=== PATIENT | female | born 1940 | race Caucasian/White ===

== ENCOUNTER 2016-11-24 01:58 | Emergency (ER) | payer OTHER, MEDICAID ==
[~2016-11-24] VITALS: Ht 162.6 cm; Wt 63.5 kg
[2016-11-24 02:00] VITALS: BP_SYST 161
[2016-11-24 02:31] LABS: BILIRUBIN,URINE NEGATIVE (NEGATIVE); BLOOD, URINE 3+ (NEGATIVE); CLARITY/URINE HAZY (CLEAR); GLUCOSE,URINE NEGATIVE (NEGATIVE); KETONES,URINE NEGATIVE (NEGATIVE); LEUKOCYTE ESTERASE ,URINE TRACE (NEGATIVE); NITRITE, URINE NEGATIVE (NEGATIVE); PROTEIN URINE 3+ (NEGATIVE); UROBILINOGEN,URINE 0.2 (0.2-1.0)
[2016-11-24 02:38] LABS: COLOR,URINE YELLOW (YELLOW)
[2016-11-24 02:39] LABS: RBC,URINE >100 /HPF (0-3)
[2016-11-24 02:40] LABS: BACTERIA,URINE FEW /HPF (None Seen)
[2016-11-24] MEDS ORDERED: SULFAMETHOXAZOLE/TRIMETHOPR DS 1 TABLET PO ONE (02:45)
[2016-11-24] MEDS ORDERED: PHENAZOPYRIDINE HCL 100 MG TABLET PO ONE (02:45)
[2016-11-24] MEDS ORDERED: MAGNESIUM CITRATE 300 ML ORAL SOLUTION PO ONE (03:00)
[2016-11-24 03:06] VITALS: BP_SYST 161
== END 2016-11-24 03:06 | disposition home or self-care (01) ==
LOC: SED 01:58
DX: N39.0 Urinary tract infection, site not specified (principal); K59.00 Constipation, unspecified; E11.9 Type 2 diabetes mellitus without complications; I10 Essential (primary) hypertension
CPT/HCPCS: 74000-TC; 81000-TC; 99285

== ENCOUNTER 2016-12-09 20:13 | Emergency (ER) | payer OTHER, MEDICAID ==
[~2016-12-09] VITALS: Ht 162.6 cm; Wt 68.0 kg
[2016-12-09 20:22] VITALS: BP_SYST 152
--- NOTE | 2016-12-09 21:23 | NUR ---
Patient to ER bed 7 to gown for evaluation. Side rails up. Report given to LUZ REAL.
[2016-12-09 21:31] LABS: BILIRUBIN,URINE NEGATIVE (NEGATIVE); BLOOD, URINE 3+ (NEGATIVE); CLARITY/URINE CLOUDY (CLEAR); COLOR,URINE BROWN (YELLOW); GLUCOSE,URINE NEGATIVE (NEGATIVE); KETONES,URINE NEGATIVE (NEGATIVE); LEUKOCYTE ESTERASE ,URINE 2+ (NEGATIVE); NITRITE, URINE NEGATIVE (NEGATIVE); PROTEIN URINE 2+ (NEGATIVE)
--- NOTE | 2016-12-09 21:40 | NUR ---
Pt AOx4, ambulatory, presents to ER with complaint of pain and burning upon voiding. Pt was on medication Amoxicillin for UTI for 10 days but only completed about 5-6 days because the symptoms had subsided. Pain is now only felt upon voiding. Pt states she was drinking plenty of cranberry juice but by then it was too late, she started feeling discomfort again. No acute distress noted. Will continue to monitor.
[2016-12-09 21:49] LABS: BACTERIA,URINE MANY /HPF (None Seen); MUCUS,URINE None Seen /LPF (None Seen); RBC,URINE >100 /HPF (0-3); WBC,URINE >100 /HPF (0-3)
--- NOTE | 2016-12-09 21:50 | NUR ---
TAFE REGISTRAR at bedside examining patient.
[2016-12-09] MEDS ORDERED: KETOROLAC TROMETHAMINE 60 MG/2 ML VIAL IM ONE (22:00)
[2016-12-09] MEDS ORDERED: cefTRIAXone 1 GM VIAL IM ONE (22:00)
[2016-12-09] MEDS ORDERED: ONDANSETRON 4 MG ODT TAB PO ONE (22:00)
[2016-12-09] MEDS ORDERED: cefTRIAXone 1 GM IVPB PREMIX 50 ML IV ONE (22:00)
[2016-12-09] MEDS ORDERED: LIDOCAINE 2%, 20 ML MDV INJ ONE (22:00)
--- NOTE | 2016-12-09 22:25 | NUR ---
Patient reports pain 0/10, 10 minutes after administration of Toradol. No adverse reactions noted. Will continue to monitor.
[2016-12-09 22:35] VITALS: BP_SYST 117
--- NOTE | 2016-12-09 22:35 | NUR ---
Patient given written and verbal discharge instructions and verbalizes understanding. ER MD discussed with patient the results and treatment provided. Patient in stable condition. ID arm band removed. Rx of Macrobid, Zofran, and Pyridium given. Patient educated on pain management and to follow up with PMD. Pain Scale 0/10. Opportunity for questions provided and answered.
== END 2016-12-09 22:35 | disposition home or self-care (01) ==
LOC: SED 20:13
DX: N39.0 Urinary tract infection, site not specified (principal); I10 Essential (primary) hypertension; E11.9 Type 2 diabetes mellitus without complications; F17.200 Nicotine dependence, unspecified, uncomplicated; Z71.6 Tobacco abuse counseling
CPT/HCPCS: 81000; 87086; 96372; 99284; J0696; J1885; J2001; Q0162; 87186-TC

== ENCOUNTER 2017-01-26 23:59 | Emergency (ER) | payer OTHER, MEDICAID ==
[~2017-01-26] VITALS: Ht 162.6 cm; Wt 62.6 kg
--- NOTE | 2017-01-27 | NUR ---
Patient to ER bed 6 to gown for evaluation. Side rails up. Report given to Mayito ESCOBAR.
[2017-01-27 00:06] VITALS: BP_SYST 139
--- NOTE | 2017-01-27 00:21 | NUR ---
Patient to ED for evaluation of "Nervous Stomach" and unable to sleep x 3 days. Patient placed on cardiac cath rn, bp and pulse oximeter. Patient reports that she has recently been staying at her sons house, c/o epigastric pain, denies CP/SOB at present. Awaiting evaluation by ER MD-will continue to observe and assess. Comfort measures offered, but declined.
--- NOTE | 2017-01-27 00:24 | NUR ---
Dr Waters at bedside to evaluate patient.
[2017-01-27] MEDS ORDERED: NACL 0.9% 1,000 ML IV ONE (00:28)
[2017-01-27] MEDS ORDERED: BELLADONNA ALKALOIDS/PHENOBARB 5 ML UDC PO ONE (00:30)
[2017-01-27] MEDS ORDERED: PANTOPRAZOLE SODIUM 40 MG/VIAL (PROTONIX) IVP ONE (00:30)
[2017-01-27] MEDS ORDERED: MAG-AL HYDROX/SIMETH 30 ML UDC PO ONE (00:30)
[2017-01-27] MEDS ORDERED: LIDOCAINE VISCOUS 2%, 15 ML UDC MM ONE (00:30)
[2017-01-27] MEDS ORDERED: LORazepam 2 MG/ML VIAL (FOR ER USE) IVP ONE (00:45)
--- NOTE | 2017-01-27 00:46 | NUR ---
Lab at bedside for blood draw
--- NOTE | 2017-01-27 00:50 | NUR ---
X-ray at bedside for films,
[2017-01-27 00:56] LABS: BASOPHILS # (AUTO) 0.1 K/uL (0.0-0.2); BASOPHILS % (AUTO) 0.9 % (0.0-2.0); EOSINOPHILS # (AUTO) 0.2 K/uL (0.0-0.4); EOSINOPHILS % (AUTO) 2.4 % (0.0-4.0); HEMOGLOBIN 14.7 g/dL (12.0-16.0); LYMPHOCYTES # (AUTO) 3.1 K/uL (1.0-5.5); LYMPHOCYTES % (AUTO) 39.6 % (20.5-51.5); MEAN CORPUSCULAR HEMOGLOBIN 30 pg (27-31); MEAN CORPUSCULAR HGB CONC 33 % (32-36); MEAN CORPUSCULAR VOLUME 89 fL (79.0-98.0); MONOCYTES # (AUTO) 0.6 K/uL (0.0-1.0); MONOCYTES % (AUTO) 7.3 % (1.7-9.3); NEUTROPHILS # (AUTO) 3.8 K/uL (1.8-7.7); NEUTROPHILS % (AUTO) 49.8 % (40.0-70.0); PLATELET COUNT (AUTO) 303 K/uL (130-430); RED BLOOD CELL COUNT(AUTO) 4.98 MIL/uL (4.2-6.2); RED CELL DISTRIBUTION WIDTH 12.2 % (9.0-15.0); WHITE BLOOD COUNT (AUTO) 7.8 K/uL (4.8-10.8)
--- NOTE | 2017-01-27 01:07 | NUR ---
Patient to CT scan for films
[2017-01-27 01:11] LABS: ANION GAP 9 (5-15); CALCIUM 8.8 mg/dL (8.4-11.0); CHLORIDE 101 mmol/L (98-107); CREATININE 0.61 mg/dL (0.55-1.30); GLUCOSE 160 mg/dL (70-99); POTASSIUM 3.5 mmol/L (3.5-5.1); SODIUM SERUM 139 mmol/L (136-145); UREA NITROGEN, BLOOD 15 mg/dL (8-21)
[2017-01-27 01:17] LABS: PROTHROMBIN TIME 10.8 SECS (9.5-12.5)
[2017-01-27 01:20] LABS: ALANINE AMINOTRANSFERASE 19 U/L (12-78); ALBUMIN 3.6 g/dL (3.4-4.8); ASPARTATE AMINOTRANSFERASE 20 U/L (10-37); TOTAL BILIRUBIN 0.7 mg/dL (0.0-1.0); TOTAL PROTEIN, SERUM 6.8 g/dL (6.4-8.3)
--- NOTE | 2017-01-27 01:30 | NUR ---
Patient returned from CT scan in stable condition. IVF infusing without difficulty-no redness or swelling noted at site. Patient remains on front desk monitor which shows sinus rhythm. Female visitor at bedside-update/emotional support given, questions answered.
[2017-01-27 02:36] VITALS: BP_SYST 122
--- NOTE | 2017-01-27 02:39 | NUR ---
Dr Waters at bedside speaking with patient regarding results and plan of care. Plan is for DC home. IVF infusing without difficulty-no redness or swelling noted at site. Vital signs updated
--- NOTE | 2017-01-27 02:55 | NUR ---
Patient sleeping soundly, awakens easily for ACI.
--- NOTE | 2017-01-27 02:56 | NUR ---
Patient given written and verbal discharge instructions and verbalizes understanding. ER MD discussed with patient the results and treatment provided. Patient in stable condition. ID arm band removed. IV catheter removed intact and dressing applied, no active bleeding. Rx of Omeprazole given. Patient educated on pain management and to follow up with PMD. Pain Scale 0. Opportunity for questions provided and answered.
== END 2017-01-27 02:54 | disposition home or self-care (01) ==
LOC: SED 23:59
DX: K29.00 Acute gastritis without bleeding (principal); J45.909 Unspecified asthma, uncomplicated; E11.9 Type 2 diabetes mellitus without complications; I10 Essential (primary) hypertension; F17.200 Nicotine dependence, unspecified, uncomplicated
CPT/HCPCS: 36415; 71010; 74176; 80053; 84484; 85025; 85379; 85610; 85730; 93005; 96361; 96374; 96375; 99285; C9113; J2001; J2060; J7030

== ENCOUNTER 2017-09-12 20:09 | Inpatient (IN) | payer OTHER, MEDICAID ==
[~2017-09-12] VITALS: Ht 162.6 cm; Wt 61.0 kg
[2017-09-12 20:09] VITALS: BP_SYST 132
[2017-09-12] MEDS ORDERED: IPRATROPIUM/ALBUTEROL SULFATE 3 ML AMPUL.NEB INH ONE (20:45)
[2017-09-12] MEDS ORDERED: ALBU8.5H8 INH (21:24)
[2017-09-12] MEDS ORDERED: LIP20 PO (21:24)
[2017-09-12] MEDS ORDERED: ALBU2.5V7 INH (21:24)
[2017-09-12] MEDS ORDERED: AMLO5TAB4 PO (21:24)
[2017-09-12] MEDS ORDERED: GLUXR500 PO (21:24)
[2017-09-12 21:28] LABS: ANION GAP 0 (5-15); CHLORIDE 100 mmol/L (98-107); CREATININE 0.67 mg/dL (0.55-1.30); GLUCOSE 267 mg/dL (70-99); POTASSIUM 4.4 mmol/L (3.5-5.1); SODIUM SERUM 137 mmol/L (136-145); UREA NITROGEN, BLOOD 17 mg/dL (8-21)
[2017-09-12 21:31] LABS: BASOPHILS % (AUTO) 0.2 % (0.0-2.0); EOSINOPHILS % (AUTO) 0.2 % (0.0-4.0); MONOCYTES # (AUTO) 0.2 K/uL (0.0-1.0)
[2017-09-12 21:39] LABS: HEMATOCRIT 41.8 % (36-48); HEMOGLOBIN 15.4 g/dL (12.0-16.0); LYMPHOCYTES # (AUTO) 1.1 K/uL (1.0-5.5); LYMPHOCYTES % (AUTO) 8.6 % (20.5-51.5); MEAN CORPUSCULAR HEMOGLOBIN 34 pg (27-31); MEAN CORPUSCULAR HGB CONC 37 % (32-36); MEAN CORPUSCULAR VOLUME 93 fL (79.0-98.0); MONOCYTES % (AUTO) 1.8 % (1.7-9.3); NEUTROPHILS % (AUTO) 89.2 % (40.0-70.0); PLATELET COUNT (AUTO) 370 K/uL (130-430); RED BLOOD CELL COUNT(AUTO) 4.49 MIL/uL (4.2-6.2); RED CELL DISTRIBUTION WIDTH 11.8 % (9.0-15.0); WHITE BLOOD COUNT (AUTO) 12.3 K/uL (4.8-10.8)
[2017-09-12 21:43] LABS: ALANINE AMINOTRANSFERASE 27 U/L (12-78); ALBUMIN 3.2 g/dL (3.4-4.8); ASPARTATE AMINOTRANSFERASE 17 U/L (10-37); TOTAL BILIRUBIN 0.2 mg/dL (0.0-1.0)
[2017-09-12] MEDS ORDERED: HYDROcodone/ACETAMIN 5-325 MG TAB (NORCO/ VICODIN) PO PRN (22:45)
[2017-09-12] MEDS ORDERED: ALBUTEROL SULFATE 0.083% 2.5 MG/3 ML VIAL.NEB INH PRN (22:45)
[2017-09-12] MEDS ORDERED: ONDANSETRON HCL 4 MG/2 ML VIAL IVP PRN (22:45)
[2017-09-12] MEDS ORDERED: ALBUTEROL MDI INHALATION 8 GM INH INH SCH (23:00)
[2017-09-12 23:11] VITALS: BP_SYST 155
[2017-09-12 23:17] VITALS: BP_SYST 155
[2017-09-12] MEDS: ALBUTEROL SULFATE 0.083% 2.5 MG/3 ML VIAL.NEB INH SCH (23:46)
[2017-09-12] MEDS ORDERED: AZITHROMYCIN 500 MG/VIAL (ZITHROMAX) IV ONE (23:47)
[2017-09-12] MEDS ORDERED: cefTRIAXone 1 GM VIAL ONE (23:47)
[2017-09-13] MEDS ORDERED: cefTRIAXone 1 GM IVPB PREMIX 50 ML IV ONE
[2017-09-13] MEDS ORDERED: AZITHROMYCIN 500 MG in NS 250 ML IV ONE ×2
[2017-09-13] MEDS: methylPREDNISolone SOD SUCC 40 MG/ML VIAL IVP SCH ×4 (00:59→17:20)
[2017-09-13] MEDS: ALBUTEROL SULFATE 0.083% 2.5 MG/3 ML VIAL.NEB INH SCH ×6 (03:03→23:35)
[2017-09-13 04:44] VITALS: BP_SYST 155
[2017-09-13] MEDS: INSULIN ASPART 100 UNITS/ML, 10 ML VIAL (NovoLOG) SUBCUT PRN ×3 (06:04→17:21)
[2017-09-13 06:31] LABS: ANION GAP 7 (5-15); CALCIUM 8.7 mg/dL (8.4-11.0); CHLORIDE 100 mmol/L (98-107); CREATININE 0.61 mg/dL (0.55-1.30); GLUCOSE 379 mg/dL (70-99); POTASSIUM 4.4 mmol/L (3.5-5.1); SODIUM SERUM 140 mmol/L (136-145); UREA NITROGEN, BLOOD 14 mg/dL (8-21)
[2017-09-13 06:41] LABS: ALANINE AMINOTRANSFERASE 23 U/L (12-78); ALBUMIN 2.9 g/dL (3.4-4.8); ASPARTATE AMINOTRANSFERASE 12 U/L (10-37); TOTAL BILIRUBIN 0.1 mg/dL (0.0-1.0)
[2017-09-13 07:19] LABS: EOSINOPHILS % (AUTO) 0.1 % (0.0-4.0); HEMATOCRIT 43.8 % (36-48); HEMOGLOBIN 14.6 g/dL (12.0-16.0); LYMPHOCYTES # (AUTO) 0.7 K/uL (1.0-5.5); LYMPHOCYTES % (AUTO) 6.3 % (20.5-51.5); MEAN CORPUSCULAR HEMOGLOBIN 30 pg (27-31); MEAN CORPUSCULAR HGB CONC 33 % (32-36); MONOCYTES % (AUTO) 0.2 % (1.7-9.3); NEUTROPHILS # (AUTO) 10.6 K/uL (1.8-7.7); NEUTROPHILS % (AUTO) 93.4 % (40.0-70.0); PLATELET COUNT (AUTO) 336 K/uL (130-430); RED BLOOD CELL COUNT(AUTO) 4.82 MIL/uL (4.2-6.2); RED CELL DISTRIBUTION WIDTH 12.2 % (9.0-15.0); WHITE BLOOD COUNT (AUTO) 11.3 K/uL (4.8-10.8)
[2017-09-13 07:53] LABS: MEAN CORPUSCULAR VOLUME 91 fL (79.0-98.0)
[2017-09-13 08:00] VITALS: BP_SYST 141
[2017-09-13] MEDS ORDERED: METF-303 PO (09:36)
[2017-09-13] MEDS: ENOXAPARIN SODIUM 40 MG/0.4 ML SYRINGE SUBCUT SCH (09:39)
[2017-09-13] MEDS: FAMOTIDINE 20 MG TABLET PO SCH (09:39)
[2017-09-13] MEDS: amLODIPine BESYLATE 5 MG TABLET PO SCH (09:39)
[2017-09-13 12:20] VITALS: BP_SYST 145
[2017-09-13 15:26] VITALS: BP_SYST 141
[2017-09-13 20:05] VITALS: BP_SYST 135
[2017-09-13] MEDS: AZITHROMYCIN 500 MG in NS 250 ML IV SCH (22:32)
[2017-09-13] MEDS: cefTRIAXone 1 GM IVPB PREMIX 50 ML IV SCH (22:32)
[2017-09-13] MEDS: ATORVASTATIN 20 MG TABLET PO SCH (22:32)
[2017-09-14 00:23] VITALS: BP_SYST 134
[2017-09-14] MEDS: methylPREDNISolone SOD SUCC 40 MG/ML VIAL IVP SCH ×5 (00:49→23:17)
[2017-09-14] MEDS: ALBUTEROL SULFATE 0.083% 2.5 MG/3 ML VIAL.NEB INH SCH ×6 (03:57→23:35)
[2017-09-14] MEDS: INSULIN ASPART 100 UNITS/ML, 10 ML VIAL (NovoLOG) SUBCUT PRN ×4 (06:07→21:36)
[2017-09-14] MEDS: FAMOTIDINE 20 MG TABLET PO SCH (08:12)
[2017-09-14] MEDS: ENOXAPARIN SODIUM 40 MG/0.4 ML SYRINGE SUBCUT SCH (08:12)
[2017-09-14] MEDS: amLODIPine BESYLATE 5 MG TABLET PO SCH (08:12)
[2017-09-14 08:17] VITALS: BP_SYST 136
[2017-09-14] MEDS ORDERED: NICOTINE 21 MG/24 HR PATCH.TD24 TD ONE (10:00)
[2017-09-14 12:08] VITALS: BP_SYST 140
[2017-09-14 16:08] VITALS: BP_SYST 138
[2017-09-14 20:05] VITALS: BP_SYST 129
[2017-09-14] MEDS: AZITHROMYCIN 500 MG in NS 250 ML IV SCH (21:17)
[2017-09-14] MEDS: ATORVASTATIN 20 MG TABLET PO SCH (21:18)
[2017-09-14] MEDS: cefTRIAXone 1 GM IVPB PREMIX 50 ML IV SCH (21:19)
[2017-09-14] MEDS ORDERED: ZOLPIDEM TARTRATE 5 MG TABLET PO SCH (21:45)
[2017-09-15] VITALS: BP_SYST 129
[2017-09-15] MEDS: ALBUTEROL SULFATE 0.083% 2.5 MG/3 ML VIAL.NEB INH SCH ×4 (03:29→15:30)
[2017-09-15] MEDS: methylPREDNISolone SOD SUCC 40 MG/ML VIAL IVP SCH ×3 (06:54→17:58)
[2017-09-15] MEDS: INSULIN ASPART 100 UNITS/ML, 10 ML VIAL (NovoLOG) SUBCUT PRN ×3 (07:01→17:58)
[2017-09-15 08:00] VITALS: BP_SYST 144
[2017-09-15] MEDS: NICOTINE 21 MG/24 HR PATCH.TD24 TD SCH ×2 (09:00→09:26)
[2017-09-15] MEDS: FAMOTIDINE 20 MG TABLET PO SCH (09:25)
[2017-09-15] MEDS: ENOXAPARIN SODIUM 40 MG/0.4 ML SYRINGE SUBCUT SCH (09:25)
[2017-09-15] MEDS: amLODIPine BESYLATE 5 MG TABLET PO SCH (09:25)
[2017-09-15 10:39] VITALS: BP_SYST 149
[2017-09-15 12:46] VITALS: BP_SYST 143
[2017-09-15 17:12] VITALS: BP_SYST 139
== END 2017-09-15 18:54 | disposition home or self-care (01) | DRG 189 ==
LOC: SED 20:09 → STU 22:45 → SMU 09-14 09:50
PROVIDERS: ADMIT Internal Medicine; ATTEND Internal Medicine
DX: J96.21 Acute and chronic respiratory failure with hypoxia (principal); E11.65 Type 2 diabetes mellitus with hyperglycemia; E87.2 Acidosis; J44.1 Chronic obstructive pulmonary disease with (acute) exacerbation; F17.210 Nicotine dependence, cigarettes, uncomplicated; I10 Essential (primary) hypertension; R74.0 Nonspecific elevation of levels of transaminase and lactic acid dehydrogenase [LDH]; J96.22 Acute and chronic respiratory failure with hypercapnia; Z83.3 Family history of diabetes mellitus; Z71.6 Tobacco abuse counseling; Z99.81 Dependence on supplemental oxygen
CPT/HCPCS: 36415; 36600; 71045; 80053; 82803-TC; 82962; 83605; 83880; 85025; 87040-TC; 93005; 94640; 94760; 96365; 99285; J0456; J0696; J1030; J1650; J1815; J1956; J7050; J7060

== ENCOUNTER 2018-08-13 21:06 | Emergency (ER) | payer MEDICAID, OTHER ==
[~2018-08-13] VITALS: Ht 162.6 cm; Wt 62.6 kg
[~2018-08-13 21:06] MED LIST: ALBU2.5V7 INH; ALBU8.5H8 INH; AMLO5TAB4 PO; METF-379 PO
[2018-08-13 21:10] VITALS: BP_SYST 154
[2018-08-13] MEDS ORDERED: IPRATROPIUM BROM 0.5 MG/2.5 ML VIAL.NEB (ATROVENT) IH ONE (21:45)
[2018-08-13] MEDS ORDERED: ALBUTEROL SULFATE 0.083% 2.5 MG/3 ML VIAL.NEB IH ONE (21:45)
[2018-08-13] MEDS ORDERED: PREDNISONE 20 MG TABLET PO ONE (21:45)
[2018-08-13 22:31] VITALS: BP_SYST 154
== END 2018-08-13 22:32 | disposition home or self-care (01) ==
LOC: SED 21:06
DX: J44.1 Chronic obstructive pulmonary disease with (acute) exacerbation (principal); R06.02 Shortness of breath; R05 Cough; E11.9 Type 2 diabetes mellitus without complications; I10 Essential (primary) hypertension; Z88.8 Allergy status to other drugs, medicaments and biological substances; Z79.899 Other long term (current) drug therapy
CPT/HCPCS: 71045; 94640; 99283; J7512; J7613

== ENCOUNTER 2019-03-30 09:18 | Inpatient (IN) | payer OTHER, MEDICAID ==
[~2019-03-30] VITALS: Ht 163.8 cm; Wt 67.1 kg
[~2019-03-30 09:18] MED LIST changes: +AMOX-426 PO; +MED4 PO
--- NOTE | 2019-03-30 09:18 | NUR ---
Patient to ER bed 3 to gown for evaluation. Side rails up. Report given to LUZ Taylor.
--- NOTE | 2019-03-30 09:19 | NUR ---
Patient is awake, alert, and oriented x4. Daughter is at bedside. Patient report feeling short of breath this morning and having to use her oxygen @ 2LPM, she has a history of COPD. Patient is O2sat is 94-95% on room air, wheezing noted bilaterally, cough noted.
[2019-03-30 09:26] VITALS: BP_SYST 137
--- NOTE | 2019-03-30 09:40 | NUR ---
ER Dr. Sales at bedside examining patient.
[2019-03-30] MEDS ORDERED: IPRATROPIUM/ALBUTEROL SULFATE 3 ML AMPUL.NEB (DUONEB) INH ONE (09:45)
[2019-03-30] MEDS ORDERED: methylPREDNISolone SOD SUCC/PF 62.5 MG/ML VIAL IVP ONE (09:45)
[2019-03-30 10:13] LABS: BASOPHILS # (AUTO) 0.1 K/uL (0.0-0.2); BASOPHILS % (AUTO) 0.8 % (0.0-2.0); EOSINOPHILS # (AUTO) 0.1 K/uL (0.0-0.4); HEMATOCRIT 46.8 % (36-48); HEMOGLOBIN 15.7 g/dL (12.0-16.0); LYMPHOCYTES # (AUTO) 3.3 K/uL (1.0-5.5); MEAN CORPUSCULAR HEMOGLOBIN 30 pg (27-31); MEAN CORPUSCULAR HGB CONC 34 % (32-36); MEAN CORPUSCULAR VOLUME 90 fL (79.0-98.0); MONOCYTES % (AUTO) 8.6 % (1.7-9.3); NEUTROPHILS # (AUTO) 6.9 K/uL (1.8-7.7); NEUTROPHILS % (AUTO) 60.6 % (40.0-70.0); PLATELET COUNT (AUTO) 352 K/uL (130-430); RED BLOOD CELL COUNT(AUTO) 5.18 MIL/uL (4.2-6.2); RED CELL DISTRIBUTION WIDTH 13.4 % (9.0-15.0); WHITE BLOOD COUNT (AUTO) 11.4 K/uL (4.8-10.8)
[2019-03-30 10:29] LABS: ANION GAP 2 (5-15); CALCIUM 9.3 mg/dL (8.4-11.0); CHLORIDE 101 mmol/L (98-107); CREATININE 0.72 mg/dL (0.55-1.30); GLUCOSE 156 mg/dL (70-99); POTASSIUM 4.5 mmol/L (3.5-5.1); SODIUM SERUM 139 mmol/L (136-145); UREA NITROGEN, BLOOD 16 mg/dL (8-21)
[2019-03-30 10:35] LABS: ALANINE AMINOTRANSFERASE 32 U/L (12-78); ALBUMIN 3.7 g/dL (3.4-4.8); ASPARTATE AMINOTRANSFERASE 16 U/L (10-37); TOTAL BILIRUBIN 0.3 mg/dL (0.0-1.0)
[2019-03-30] MEDS ORDERED: ALBUTEROL SULFATE 0.083% 2.5 MG/3 ML VIAL.NEB INH ONE ×2 (11:30→12:15)
[2019-03-30] MEDS ORDERED: cefTRIAXone 1 GM IVPB PREMIX 50 ML IV ONE (12:15)
[2019-03-30] MEDS ORDERED: AZITHROMYCIN 500 MG in NS 250 ML IV SCH (12:15)
[2019-03-30] MEDS ORDERED: cefTRIAXone 1 GM in D5W 50 ML IV SCH (12:15)
[2019-03-30] MEDS ORDERED: DEXTROSE 50% JECT 50 ML DISP.SYRIN IVP PRN (12:15)
[2019-03-30] MEDS ORDERED: ALBUTEROL SULFATE 0.083% 2.5 MG/3 ML VIAL.NEB INH PRN (12:15)
[2019-03-30] MEDS ORDERED: AZITHROMYCIN 500 MG in NS 250 ML IV ONE (12:15)
[2019-03-30] MEDS ORDERED: AZITHROMYCIN 500 MG/VIAL (ZITHROMAX) IV ONE (12:27)
--- NOTE | 2019-03-30 12:49 | NUR ---
ADMISSION NOTE Received patient from ER via beatriz, received report from JOHNNY ESCOBAR. Patient admitted with diagnosis of COPD EXACERBATION. Patient oriented to hospital routine, call light, toileting and safety-patient verbalized understanding.
--- NOTE | 2019-03-30 12:50 | NUR ---
Patient will be admitted to care of Dr Cherry Admitted to Tele unit. Will go to room 122B . Belongings list completed. Summary report printed. Report will be given at bedside.
--- NOTE | 2019-03-30 12:50 | NUR ---
ADMISSION NOTES; PT ADMITTED FROM E.R. FOR COPD EXACERBATION, PT IS AAOX4, NO PAIN, O2 ON 2LI IS 94%, NO FEVER.
[2019-03-30 13:00] VITALS: BP_SYST 126
[2019-03-30] MEDS ORDERED: FLU VACC TS2019(65UP)/MF59C/PF 45 MCG/0.5 ML SYRINGE I.M. PRN (14:00)
--- NOTE | 2019-03-30 14:00 | NUR ---
NURSES NOTES: PT RESTING IN POSITION OF COMFORT, BEDSIDE COMMODE PLACED AT BEDSIDE TO HELP PREVENT PT FROM BECOMING SOB, IS THERE FOR EVENING USE, PT VERBALIZES UNDERSTANDING, REORIENTED TO UNIT AND CALL LIGHT, PLACED CALL LIGHT WITHIN REACH, WILL CONT' TO MONITOR AND ASSESS.
[2019-03-30] MEDS: IPRATROPIUM BROM 0.5 MG/2.5 ML VIAL.NEB (ATROVENT) INH SCH ×2 (14:05→19:40)
[2019-03-30] MEDS: methylPREDNISolone SOD SUCC/PF 62.5 MG/ML VIAL IVP SCH ×2 (14:38→21:37)
[2019-03-30 15:56] VITALS: BP_SYST 126
--- NOTE | 2019-03-30 17:29 | NUR ---
[facility] consult called: for Dr. Hurd (Dr. Townsend rehabilitation services manager), regarding COPD, ordered by Dr. Cherry, spoke with Mesha.
[2019-03-30] MEDS: INSULIN REGULAR, HUMAN 100 UNITS/ML, 10 ML VIAL (humuLIN R) SUBCUT PRN ×2 (19:09→21:37)
[2019-03-30] MEDS: ALBUTEROL SULFATE 0.083% 2.5 MG/3 ML VIAL.NEB INH SCH (19:40)
[2019-03-30 20:40] VITALS: BP_SYST 135
--- NOTE | 2019-03-30 22:15 | NUR ---
ASSIST PATIENT OUT OF BED TO [facility]SC AMBULATES WITH STEADY GAIT SKIN DRY WARM .
--- NOTE | 2019-03-31 | NUR ---
BSG BLOOD SUGAR GLUCOSE 350 MG DL REGULAR INSULIN PER SLIDING SCALE 10 UNITS SUB Q. ADMINISTER ORDERED .
[2019-03-31 00:43] VITALS: BP_SYST 128
[2019-03-31] MEDS: ALBUTEROL SULFATE 0.083% 2.5 MG/3 ML VIAL.NEB INH SCH ×4 (00:55→19:58)
[2019-03-31] MEDS: IPRATROPIUM BROM 0.5 MG/2.5 ML VIAL.NEB (ATROVENT) INH SCH ×4 (00:55→19:58)
--- NOTE | 2019-03-31 03:21 | NUR ---
HOURLY ROUNDING PATIENT RESTING HOB ELEVATED ON 02 NC @ 2 LPM CHEST MOVEMENT SHALLOW ALSO SYMMETRICAL / .
--- NOTE | 2019-03-31 03:26 | NUR ---
PATIENT REFUSING SCD / .
[2019-03-31] MEDS: methylPREDNISolone SOD SUCC/PF 62.5 MG/ML VIAL IVP SCH ×3 (06:26→21:12)
[2019-03-31] MEDS: INSULIN REGULAR, HUMAN 100 UNITS/ML, 10 ML VIAL (humuLIN R) SUBCUT PRN ×4 (06:28→23:02)
--- NOTE | 2019-03-31 07:50 | NUR ---
OPENING NOTE RECEIVED PATIENT AWAKE IN BED. A/OX4. DENIES PAIN. CONT ON O2@2L/M VIA NC. NO ACUTE DISTRESS. NO SOB. RESP EVEN AND UNLABORED. SKIN WARM AND DRY TO TOUCH. IV INTACT AND PATENT. REFUSE BILAT SCDs. AMBULATES WITH STEADY GAIT. DISCUSSED PLAN OF CARE. BED IN LOW AND LOCKED POSITION. SIDERAIL UPX2. ALL NEEDS MET. CONT TO MONITOR. CALL LIGHT IN REACH.
[2019-03-31 08:00] VITALS: BP_SYST 121
--- NOTE | 2019-03-31 08:58 | NUR ---
Nutrition Update Giorgio Scale 18 noted. Pt admitted for COPD. Diet: 2 gm Na BMI: 25 kg/m2 RD to follow per nutrition care standards.
[2019-03-31] MEDS ORDERED: cefTRIAXone 1 GM in D5W 50 ML IV SCH (09:00)
[2019-03-31] MEDS: cefTRIAXone 1 GM in D5W 50 ML IV SCH (09:17)
--- NOTE | 2019-03-31 09:20 | NUR ---
NOTE PATIENT RETURNING FROM BATHROOM FOR ADL CARE, FADUMO WELL. ADMINISTERED IV ATB ORDERED, FADUMO WELL. NO S/SX ASE NOTED. ALL NEEDS MET. CONT TO MONITOR
[2019-03-31] MEDS ORDERED: amLODIPine BESYLATE 5 MG TABLET PO ONE (10:00)
[2019-03-31] MEDS ORDERED: metFORMIN HCL 500 MG TABLET PO ONE (10:00)
[2019-03-31] MEDS: AZITHROMYCIN 500 MG in NS 250 ML IV SCH (11:03)
[2019-03-31 11:24] VITALS: BP_SYST 130
--- NOTE | 2019-03-31 12:10 | NUR ---
BS BLOOD GLUCOSE 365 mg/dL WITH INSULIN COVERAGE ORDERED, FADUMO WELL. TEACHING DONE ON DM. ALL NEEDS MET
--- NOTE | 2019-03-31 14:50 | NUR ---
NOTE PATIENT AWAKE IN BED WATCHING TV. ADMINISTERED MEDICATION ORDERED, FADUMO WELL. NO ACUTE DISTRESS. NO SOB. ALL NEEDS MET. CONT TO MONITOR
[2019-03-31 17:16] VITALS: BP_SYST 128
--- NOTE | 2019-03-31 17:35 | NUR ---
BS PATIENT BLOOD GLUCOSE 283 mg/dL WITH INSULIN COVERAGE ORDERED, FADUMO WELL. DAUGHTER SITTING AT BEDSIDE. ALL NEEDS MET. CONT TO MONITOR
--- NOTE | 2019-03-31 18:31 | NUR ---
CLOSING NOTE PATIENT STABLE. NO ACUTE DISTRESS. CONT ON O2@2L/M VIA NC. SKIN WARM AND DRY. BED IN LOW AND LOCKED POSITION. REFUSE BILAT SCD. CALL LIGHT IN REACH. CON TO TMONITOR
[2019-03-31 19:47] VITALS: BP_SYST 137
--- NOTE | 2019-03-31 19:55 | NUR ---
PM SHIFT ASSESSMENT Received patient sitting up in bed, aox4, on 02 2L NC, no sob noted, vital signs stable. Patient denies any pain or discomfort at this time, IV line to right ac intact and patent, plan of care discussed with patient, oriented to room and call light for nurse assistance, safety measures in place, will monitor.
--- NOTE | 2019-03-31 21:53 | NUR ---
RN ROUNDS Patient awake, watching tv, no sob noted, due medications administered, educated on use and side effects of medications, patient verbalized understanding, compliant, call light within reach, safety measures in place, will monitor.
--- NOTE | 2019-03-31 23:41 | NUR ---
RN ROUNDS Patient resting quietly, breathing is even and unlabored, blood sugar check this pm of 328, covered with regular insulin sliding scale per md order, vital signs stable, call light within reach, safety measures in place, will monitor.
[2019-04-01 00:33] VITALS: BP_SYST 138
[2019-04-01] MEDS: ALBUTEROL SULFATE 0.083% 2.5 MG/3 ML VIAL.NEB INH SCH ×2 (00:50→07:14)
[2019-04-01] MEDS: IPRATROPIUM BROM 0.5 MG/2.5 ML VIAL.NEB (ATROVENT) INH SCH ×2 (00:50→07:14)
--- NOTE | 2019-04-01 01:26 | NUR ---
RN ROUNDS Patient resting quietly, breathing is even and unlabored, on room air, call light within reach, safety measures in place, will monitor.
--- NOTE | 2019-04-01 04:04 | NUR ---
RN ROUNDS Patient sleeping, breathing is even and unlabored, on 02 2L NC, call light within reach, safety measures in place, will monitor.
[2019-04-01] MEDS: methylPREDNISolone SOD SUCC/PF 62.5 MG/ML VIAL IVP SCH (05:32)
[2019-04-01] MEDS: INSULIN REGULAR, HUMAN 100 UNITS/ML, 10 ML VIAL (humuLIN R) SUBCUT PRN (05:36)
--- NOTE | 2019-04-01 06:36 | NUR ---
RN ROUNDS Patient resting quietly, no sob noted, due medications administered, blood sugar check this am of 238, covered with regular insulin per md order, patient needs attended to, call light within reach, safety measures maintained, will continue to monitor until report given to am nurse.
[2019-04-01] MEDS ORDERED: metFORMIN HCL 500 MG TABLET PO SCH (08:00)
--- NOTE | 2019-04-01 08:00 | NUR ---
A/Ox4,vss,sitting in the bed and receiving breathing treatment,pt tolerated well,needs attended safety maintained.continue to monitor pt.
[2019-04-01 08:12] VITALS: BP_SYST 128
[2019-04-01] MEDS ORDERED: amLODIPine BESYLATE 5 MG TABLET PO SCH (09:00)
[2019-04-01] MEDS: cefTRIAXone 1 GM in D5W 50 ML IV SCH (09:28)
--- NOTE | 2019-04-01 10:00 | NUR ---
give am meds due,pt is compliant of meds, came and seen pt at bedside.
[2019-04-01] MEDS: AZITHROMYCIN 500 MG in NS 250 ML IV SCH (10:31)
[2019-04-01] MEDS ORDERED: LEVO750T45 PO (11:48)
[2019-04-01 12:00] VITALS: BP_SYST 126
--- NOTE | 2019-04-01 12:30 | NUR ---
d/c home as per order.d/c IV,d/c equipment monitor phototypesetting,d/c instruction with prescription given and explained to pt,pt verbalized understandings of d/c instruction,leaving via w/c.accompanied by family.
--- NOTE | 2019-04-28 14:05 | NUR ---
DISCHARGE FOLLOW UP PHONE CALL CM/ LEYLA TECH PHONED PATIENT, . UNABLE TO REACH PATIENT. 1ST ATTEMPT WAS MADE, LEFT VOICEMAIL 04/28/19.
== END 2019-04-01 12:05 | disposition home or self-care (01) | DRG 189 ==
LOC: SED 09:18 → STU 11:51
PROVIDERS: ADMIT Internal Medicine Hospice and Palliative Medicine; ATTEND Internal Medicine Hospice and Palliative Medicine
DX: J96.21 Acute and chronic respiratory failure with hypoxia (principal); J44.1 Chronic obstructive pulmonary disease with (acute) exacerbation; J44.0 Chronic obstructive pulmonary disease with (acute) lower respiratory infection; R65.10 Systemic inflammatory response syndrome (SIRS) of non-infectious origin without acute organ dysfunction; E11.9 Type 2 diabetes mellitus without complications; E78.5 Hyperlipidemia, unspecified; F17.210 Nicotine dependence, cigarettes, uncomplicated; M70.22 Olecranon bursitis, left elbow; I10 Essential (primary) hypertension; J20.9 Acute bronchitis, unspecified; Z99.81 Dependence on supplemental oxygen; Z88.5 Allergy status to narcotic agent; Z88.8 Allergy status to other drugs, medicaments and biological substances; Z79.899 Other long term (current) drug therapy; Z79.84 Long term (current) use of oral hypoglycemic drugs; Z79.51 Long term (current) use of inhaled steroids
CPT/HCPCS: 36415; 36600; 71045; 80053; 82803-TC; 82962; 83605; 83880; 84484; 85025; 86710; 87040-TC; 93005; 94640; 94760; 96365; 96368; 96375; 99285; G0378; J0456; J0696; J1815; J2930; J7050; J7060; J7613; J7620

== ENCOUNTER 2020-02-09 14:43 | Emergency (ER) | payer OTHER, MEDICAID ==
[~2020-02-09] VITALS: Ht 162.6 cm; Wt 67.1 kg
[~2020-02-09 14:43] MED LIST changes: -AMOX-426 PO; +LEVO750T45 PO; -MED4 PO
[2020-02-09 14:45] VITALS: BP_SYST 138
--- NOTE | 2020-02-09 14:45 | NUR ---
Dr Cooney evaluating patient at bedside
--- NOTE | 2020-02-09 14:47 | NUR ---
Placed in room 01 . Placed on java oracle developer, blood pressure machine and pulse oximeter. To gown for exam. Side rails up.
--- NOTE | 2020-02-09 14:47 | NUR ---
Patient transported to radiology via gurney, accompanied by staff.
--- NOTE | 2020-02-09 14:50 | NUR ---
Pt bib daughter to ER with c/o abdominal pain, tremors to left arm and memory issues x 2 days. V/S stable, pt is afebrile. Currently resting in bed, will continue to monitor.
[2020-02-09] MEDS ORDERED: NACL 0.9% 500 ML IV ONE (15:00)
--- NOTE | 2020-02-09 15:00 | NUR ---
# 20 gauge angiocath placed to LFA. Use of asceptic technique. Opsite placed over site. Blood return noted. Blood for lab drawn from site. Flushed with 10 cc of normal saline. No evidence of infiltration noted. Patient tolerated well.
--- NOTE | 2020-02-09 15:10 | NUR ---
Urine collected for urine sample and sent to lab as per MD order.
--- NOTE | 2020-02-09 15:20 | NUR ---
1L NS bolus infusing as per MD order.
[2020-02-09 15:33] LABS: BASOPHILS # (AUTO) 0.1 K/uL (0.0-0.2); BASOPHILS % (AUTO) 0.7 % (0.0-2.0); EOSINOPHILS # (AUTO) 0.2 K/uL (0.0-0.4); EOSINOPHILS % (AUTO) 1.6 % (0.0-4.0); HEMATOCRIT 48.2 % (36-48); HEMOGLOBIN 15.5 g/dL (12.0-16.0); LYMPHOCYTES # (AUTO) 3.2 K/uL (1.0-5.5); LYMPHOCYTES % (AUTO) 32.3 % (20.5-51.5); MEAN CORPUSCULAR HEMOGLOBIN 29 pg (27-31); MEAN CORPUSCULAR HGB CONC 32 % (32-36); MEAN CORPUSCULAR VOLUME 90 fL (79.0-98.0); MONOCYTES # (AUTO) 0.5 K/uL (0.0-1.0); MONOCYTES % (AUTO) 4.6 % (1.7-9.3); NEUTROPHILS # (AUTO) 6.1 K/uL (1.8-7.7); NEUTROPHILS % (AUTO) 60.8 % (40.0-70.0); PLATELET COUNT (AUTO) 333 K/uL (130-430); RED BLOOD CELL COUNT(AUTO) 5.37 MIL/uL (4.2-6.2); RED CELL DISTRIBUTION WIDTH 13.1 % (9.0-15.0)
[2020-02-09 16:04] LABS: ANION GAP 11 (5-15); CALCIUM 9.3 mg/dL (8.4-11.0); CHLORIDE 99 mmol/L (98-107); GLUCOSE 154 mg/dL (70-99); POTASSIUM 3.7 mmol/L (3.5-5.1); SODIUM SERUM 138 mmol/L (136-145); UREA NITROGEN, BLOOD 13 mg/dL (8-21)
[2020-02-09 16:12] LABS: BILIRUBIN,URINE NEGATIVE (NEGATIVE); BLOOD, URINE NEGATIVE (NEGATIVE); CLARITY/URINE CLOUDY (CLEAR); COLOR,URINE YELLOW (YELLOW); GLUCOSE,URINE NEGATIVE (NEGATIVE); KETONES,URINE NEGATIVE (NEGATIVE); LEUKOCYTE ESTERASE ,URINE TRACE (NEGATIVE); NITRITE, URINE NEGATIVE (NEGATIVE); PROTEIN URINE TRACE (NEGATIVE)
[2020-02-09 16:16] LABS: PROTHROMBIN TIME 9.9 SECS (9.5-12.5)
[2020-02-09 16:18] LABS: ALANINE AMINOTRANSFERASE 26 U/L (12-78); ALBUMIN 3.8 g/dL (3.4-4.8); ASPARTATE AMINOTRANSFERASE 20 U/L (10-37); TOTAL BILIRUBIN 0.4 mg/dL (0.0-1.0)
[2020-02-09 16:51] VITALS: BP_SYST 138
--- NOTE | 2020-02-09 16:52 | NUR ---
Patient given written and verbal discharge instructions and verbalizes understanding. ER MD discussed with patient the results and treatment provided. Patient in stable condition. ID arm band removed. IV catheter removed intact and dressing applied, no active bleeding. No prescriptions given. Patient educated on pain management and to follow up with PMD. Pain Scale 0. Opportunity for questions provided and answered. Medication side effect fact sheet provided.
[2020-02-09 16:53] LABS: BACTERIA,URINE MANY /HPF (None Seen); FINE GRANULAR CASTS,URINE 0-10 /LPF (None Seen); MUCUS,URINE None Seen /LPF (None Seen); RBC,URINE 0-3 /HPF (0-3)
== END 2020-02-09 16:52 | disposition home or self-care (01) ==
LOC: SED 14:43
DX: M79.642 Pain in left hand (principal); J44.9 Chronic obstructive pulmonary disease, unspecified; I10 Essential (primary) hypertension; E11.9 Type 2 diabetes mellitus without complications; F17.200 Nicotine dependence, unspecified, uncomplicated; Z79.899 Other long term (current) drug therapy; Z88.8 Allergy status to other drugs, medicaments and biological substances
CPT/HCPCS: 36415; 70450; 80053; 81000; 85025; 85610; 85730; 87086; 96360; 99284; J7030

== ENCOUNTER 2022-04-26 16:34 | Emergency (ER) | payer OTHER, MEDICAID ==
[~2022-04-26] VITALS: Ht 162.6 cm; Wt 67.1 kg
[~2022-04-26 16:34] MED LIST changes: -LEVO750T45 PO; +LEVO750T64 PO
--- NOTE | 2022-04-26 16:45 | NUR ---
Placed in room 01 . Placed on monitoring coordinator, blood pressure machine and pulse oximeter. To gown for exam. Side rails up. Report given to LUZ MERIDA.
[2022-04-26 16:50] VITALS: BP_SYST 148
--- NOTE | 2022-04-26 16:53 | NUR ---
ER DR. LEAL AT THE BEDSIDE EXAMINING PT
[2022-04-26] MEDS ORDERED: LIDOCAINE 1% 10 MG/ML, 20 ML MDV INJ ONE (17:00)
[2022-04-26] MEDS ORDERED: DIPHTH,PERTUSS(ACELL),TET VAC 0.5 ML VIAL (Tdap) I.M. ONE (17:00)
[2022-04-26] MEDS ORDERED: BACITRACIN 1 GM OINT TP ONE (17:00)
[2022-04-26] MEDS ORDERED: CLIN-142 PO (17:09)
[2022-04-26 17:10] LABS: BASOPHILS # (AUTO) 0.1 K/uL (0.0-0.2); BASOPHILS % (AUTO) 1.1 % (0.0-2.0); EOSINOPHILS # (AUTO) 0.4 K/uL (0.0-0.4); EOSINOPHILS % (AUTO) 3.9 % (0.0-4.0); HEMATOCRIT 40.9 % (36-48); HEMOGLOBIN 14.3 g/dL (12.0-16.0); LYMPHOCYTES # (AUTO) 3.6 K/uL (1.0-5.5); LYMPHOCYTES % (AUTO) 36.6 % (20.5-51.5); MEAN CORPUSCULAR HEMOGLOBIN 30 pg (27-31); MEAN CORPUSCULAR HGB CONC 35 % (32-36); MEAN CORPUSCULAR VOLUME 86 fL (79.0-98.0); MONOCYTES # (AUTO) 0.6 K/uL (0.0-1.0); MONOCYTES % (AUTO) 6.4 % (1.7-9.3); NEUTROPHILS # (AUTO) 5.1 K/uL (1.8-7.7); PLATELET COUNT (AUTO) 265 K/uL (130-430); RED BLOOD CELL COUNT(AUTO) 4.74 MIL/uL (4.2-6.2); RED CELL DISTRIBUTION WIDTH 13.9 % (9.0-15.0); WHITE BLOOD COUNT (AUTO) 9.8 K/uL (4.8-10.8)
[2022-04-26 17:18] LABS: ACETONE, SERUM NEGATIVE (NEGATIVE)
--- NOTE | 2022-04-26 17:18 | NUR ---
DR. LEAL DONE THE I&D BEDSIDE FOR PT.
[2022-04-26 17:33] LABS: ALANINE AMINOTRANSFERASE 21 U/L (12-78); ALBUMIN 3.6 g/dL (3.4-4.8); ANION GAP 3 (5-15); ASPARTATE AMINOTRANSFERASE 18 U/L (10-37); C-REACTIVE PROTEIN QUANT 0.3 mg/dL (0-0.5); CALCIUM 8.7 mg/dL (8.4-11.0); CHLORIDE 104 mmol/L (98-107); CREATININE 0.79 mg/dL (0.55-1.30); GLUCOSE 145 mg/dL (70-99); TOTAL BILIRUBIN 0.2 mg/dL (0.0-1.0); UREA NITROGEN, BLOOD 15 mg/dL (8-21)
--- NOTE | 2022-04-26 17:41 | NUR ---
LAB RESULTS CAME BACK AND REVIEWED BY DR. LEAL. PT THEN D/C'D HOME. Patient given written and verbal discharge instructions and verbalizes understanding. ER MD discussed with patient the results and treatment provided. Patient in stable condition. ID arm band removed. Rx of CLINDAMYCIN given. Patient educated on pain management and to follow up with PMD. Pain Scale 1. Opportunity for questions provided and answered. Medication side effect fact sheet provided.
[2022-04-26 17:49] VITALS: BP_SYST 147
== END 2022-04-26 17:41 | disposition home or self-care (01) ==
LOC: SED 16:34
DX: L02.214 Cutaneous abscess of groin (principal); J44.9 Chronic obstructive pulmonary disease, unspecified; E11.9 Type 2 diabetes mellitus without complications; I10 Essential (primary) hypertension; Z88.1 Allergy status to other antibiotic agents; Z79.899 Other long term (current) drug therapy
CPT/HCPCS: 99283; 10060; 80053; 82009; 85025; 86140; 36415; 90715; 83605; 90471; J2001

== ENCOUNTER 2022-04-28 19:08 | Emergency (ER) | payer OTHER, MEDICAID ==
[~2022-04-28 19:08] MED LIST changes: +CLIN-142 PO
--- NOTE | 2022-04-28 20:36 | NUR ---
Patient left without being triaged. ER MD aware
== END 2022-04-28 20:36 | disposition left against medical advice (07) ==
LOC: SED 19:08
DX: Z48.00 Encounter for change or removal of nonsurgical wound dressing (principal); Z53.21 Procedure and treatment not carried out due to patient leaving prior to being seen by health care provider

== ENCOUNTER 2023-11-18 19:48 | Emergency (ER) | payer BC, MEDICAID ==
[~2023-11-18] VITALS: Ht 162.6 cm; Wt 64.9 kg
[2023-11-18 19:57] VITALS: PULSE 77; RESP 20; TEMP 97.8; O2SAT 98
[2023-11-18 20:40] LABS: BASOPHILS # (AUTO) 0.1 K/uL (0.0-0.2); BASOPHILS % (AUTO) 1.1 % (0.0-2.0); EOSINOPHILS # (AUTO) 0.2 K/uL (0.0-0.4); EOSINOPHILS % (AUTO) 2.6 % (0.0-4.0); HEMATOCRIT 40.2 % (36-48); HEMOGLOBIN 13.8 g/dL (12.0-16.0); LYMPHOCYTES % (AUTO) 25.9 % (20.5-51.5); MEAN CORPUSCULAR HEMOGLOBIN 29 pg (27-31); MEAN CORPUSCULAR HGB CONC 34 % (32-36); MEAN CORPUSCULAR VOLUME 85 fL (79.0-98.0); MONOCYTES # (AUTO) 0.3 K/uL (0.0-1.0); MONOCYTES % (AUTO) 4.2 % (1.7-9.3); NEUTROPHILS # (AUTO) 5.1 K/uL (1.8-7.7); NEUTROPHILS % (AUTO) 66.2 % (40.0-70.0); PLATELET COUNT (AUTO) 283 K/uL (130-430); RED BLOOD CELL COUNT(AUTO) 4.72 MIL/uL (4.2-6.2); RED CELL DISTRIBUTION WIDTH 14.1 % (9.0-15.0); WHITE BLOOD COUNT (AUTO) 7.7 K/uL (4.8-10.8)
[2023-11-18] MEDS: NACL 0.9% 1,000 ML IV ONE (20:41)
[2023-11-18] MEDS: ONDANSETRON HCL 4 MG/2 ML VIAL IVP ONE (20:41)
[2023-11-18 21:02] LABS: BILIRUBIN,URINE NEGATIVE (NEGATIVE); BLOOD, URINE 2+ (NEGATIVE); COLOR,URINE YELLOW (YELLOW); GLUCOSE,URINE NEGATIVE (NEGATIVE); KETONES,URINE NEGATIVE (NEGATIVE); LEUKOCYTE ESTERASE ,URINE NEGATIVE (NEGATIVE); NITRITE, URINE NEGATIVE (NEGATIVE); PROTEIN URINE NEGATIVE (NEGATIVE); UROBILINOGEN,URINE 0.2 (0.2-1.0)
[2023-11-18 21:19] LABS: ALANINE AMINOTRANSFERASE 20 U/L (12-78); ALBUMIN 3.3 g/dL (3.4-4.8); ANION GAP 5 (5-15); ASPARTATE AMINOTRANSFERASE 22 U/L (10-37); BILIRUBIN,DIRECT 0.1 mg/dL (0.0-0.3); CALCIUM 8.2 mg/dL (8.4-11.0); CARBON DIOXIDE 29 mmol/L (23-29); CHLORIDE 107 mmol/L (98-107); CREATININE 0.71 mg/dL (0.55-1.30); GLUCOSE 149 mg/dL (74-106); LIPASE 30 U/L (16-77); POTASSIUM 4.3 mmol/L (3.5-5.1); SODIUM SERUM 141 mmol/L (136-145); TOTAL BILIRUBIN 0.4 mg/dL (0.0-1.0); UREA NITROGEN, BLOOD 14 mg/dL (8-21)
[2023-11-18 21:46] LABS: CLARITY/URINE SLIGHTLY HAZY (CLEAR)
[2023-11-18 21:47] LABS: BACTERIA,URINE MODERATE /HPF (None Seen); MUCUS,URINE 1+ /LPF (None Seen)
[2023-11-18] MEDS ORDERED: HYDR-3917 PO (23:16)
[2023-11-18] MEDS ORDERED: TAMS-11 PO (23:16)
[2023-11-18 23:28] VITALS: BP_SYST 139; PULSE 68; RESP 18; TEMP 97.7; O2SAT 94
== END 2023-11-18 23:28 | disposition home or self-care (01) ==
LOC: SED 19:48
DX: N23 Unspecified renal colic (principal); J45.909 Unspecified asthma, uncomplicated; E11.9 Type 2 diabetes mellitus without complications; J44.9 Chronic obstructive pulmonary disease, unspecified; I10 Essential (primary) hypertension; Z88.8 Allergy status to other drugs, medicaments and biological substances; Z79.899 Other long term (current) drug therapy; Z79.2 Long term (current) use of antibiotics
CPT/HCPCS: 99285; 74176; 96374; 96361; 80076; 80048; 81001; 83690; 85025; 87086; 36415; J2405; J7030; 81000; 81015